=== PATIENT | female | born 1975 | race Caucasian/White ===

== ENCOUNTER 2021-04-20 15:07 | Emergency (ER) | payer SELFPAY ==
--- NOTE | ~2021-04-20 | XR_ITS ---
EXAMINATION: XR chest 1V portable INDICATION: Dizziness and slurred speech TECHNIQUE: Portable AP chest at 1644 hours COMPARISON: None available FINDINGS: The lungs are free of acute opacities. There is no pleural effusion or pneumothorax. The ca rdiomediastinal silhouette is normal. IMPRESSION: 1. No acute cardiopulmonary abnormality. Reviewed, dictated and finalized at location B.
--- NOTE | ~2021-04-20 | CT_ITS ---
EXAMINATION: CT brain wo con INDICATION: Slurred speech COMPARISON: None TECHNIQUE: Standard unenhanced head CT. The dose-length product (DLP) was 529.67 mGy-cm. The mA was a djusted according to patient size. Iterative reconstruction technique was employed. FINDINGS: There is no intracranial hemorrhage, acute infarction, or abnormal mass lesion. Focal areas of low attenuation in the gary may reflect prior infarct. The ventricles are normal. There is no abn ormal mass effect or midline shift. The reaves-white matter differentiation is normal. The basal cister ns are patent. The orbits are normal. The paranasal sinuses, mastoids and calvarium are normal. IMPRESSION: 1. Likely areas of prior infarction in the gary without acute intracranial abnormality. Reviewed, dictated and finalized at location B. IMPRESSION: 1. Likely areas of prior infarction in the gary without acute intracranial abno rmality.
[2021-04-20 16:14] VITALS: BP 198/119; PULSE 118; RESP 18; TEMP 36.2; O2SAT 94
--- NOTE | 2021-04-20 16:20 | ECG_ITS ---
Measurements Intervals [place] Rate: 120 P: 46 IL: 156 QRS: -12 QRSD: 86 T: 54 QT: 428 QTc: 605 Interpretive Statements SINUS TACHYCARDIA POOR R WAVE PROGRESSION, CONSIDER ANTERIOR INFARCT BASELINE WANDER- III, AVL, V4-V6 ABNORMAL ECG Electronically Signed On 04-20-2021 19:33:05 CDT by Harvey Sweet D.O.
[2021-04-20 16:35] LABS: Basophils Absolute Auto 0.1 K/mm3 (0.0-0.1); Basophils Percent Auto 0.7 % (0.2-1.2); Eosinophils Absolute Auto 0.1 K/mm3 (0-0.3); Eosinophils Percent Auto 1.7 % (0-4.4); Hematocrit 53.2 % (37.0-47.0); Hemoglobin 17.4 g/dL (12.0-15.0); Immature Granulocyte Absolute 0.03 K/mm3 (0.00-0.031); Immature Granulocyte Percent A 0.4 % (0-0.5); Lymphocytes Absolute Auto 1.37 K/mm3 (0.9-3.2); Lymphocytes Percent Auto 16.3 % (18.3-44.2); Mean Corpuscular HGB Conc 32.7 g/dl (32-36); Mean Corpuscular Hemoglobin 26.5 pg (26-34); Mean Corpuscular Volume 81.1 fl (80-100); Mean Platelet Volume 9.2 fl (7.4-10.4); Monocytes Absolute Auto 0.7 K/mm3 (0.1-0.6); Monocytes Percent Auto 8.1 % (2.6-8.5); Neutrophils Absolute Auto 6.1 K/mm3 (1.3-6.7); Neutrophils Percent Auto 72.8 % (45.5-73.1); Platelet Count Result 369 k/mm3 (150-375); Red Blood Count 6.56 M/mm3 (4.2-5.4); Red Cell Distribution Width 13.6 % (11.5-14.5); White Blood Count 8.4 K/mm3 (4.5-10.0)
[2021-04-20 16:41] LABS: Anion Gap 7 mmol/L (8-16); Blood Urea Nitrogen 8 mg/dL (7-17); Calcium 9.4 mg/dL (8.4-10.2); Carbon Dioxide 23 mmol/L (22-30); Chloride 104 mmol/L (98-107); Estimated CRCL calculation 192 ml/min; Estimated Glomerular Filt Rate > 60; Glucose 349 mg/dL (65-110); Potassium 3.8 mmol/L (3.4-5.0); Sodium 134 mmol/L (137-145)
[2021-04-20 16:47] LABS: INR 0.9; Prothrombin Time 11.7 Seconds (11.1-14.7)
[2021-04-20 16:49] LABS: Partial Thromboplastin Time 24.6 SECONDS (22.3-36.8)
[2021-04-20 16:53] LABS: Troponin I < 0.012 ng/mL (0.000-0.034)
[2021-04-20 17:14] VITALS: BP 155/94; PULSE 107; TEMP 36.5; O2SAT 99
[2021-04-20 20:04] VITALS: BP 176/96; PULSE 103; RESP 24; O2SAT 97
--- NOTE | 2021-04-20 20:38 | PC.NURSE ---
This nurse went in to patient room perform initial assessment on patient. Patient was speaking with Dr. Alexis, the patient asked this nurse if she could speak to a physician who spoke mohawk. The patient then said that she would like to leave. This nurse attempted to get the patient to sign an AMA form and the patient refused.
--- NOTE | 2021-04-20 21:00 | ED.GENADULT ---
HPI - General Adult General Chief complaint: Neuro Symptoms/Deficit Stated complaint: headache slurred speech Time Seen by Provider: 04/20/21 20:31 Source: patient, EMS and RN notes reviewed Mode of arrival: EMS Limitations: no limitations History of Present Illness HPI narrative: Patient is a 45 years old white female presented to the ED by ambulance from home complaining of slurred speech, poor balance and headache started 2 days ago. Patient reports a history of CVA about 7 years ago without any residual deficit. Patient is telling me that she does not take medication at home but have history of diabetes and MS. patient also telling me that she has been going to work over the last 2 days without any restriction. When I asked her about how she have history of MS and diabetes without medication and who is her family physician. Patient got mad and told me that she needs a physician speaks Spanish. In the presence of the ED nurse.. Then pulled her blood pressure cuff and got out of the bed telling the nurse that she would like to leave right away. I did have any chance to ask patient has any other questions. Or to do physical examination. Course Vital Signs Vital signs: Vital Signs Temperature 36.2 C L 04/20/21 16:14 Pulse Rate 118 H 04/20/21 16:14 Respiratory Rate 18 04/20/21 16:14 Blood Pressure 198/119 H 04/20/21 16:14 Pulse Oximetry 94 04/20/21 16:14 Temperature 36.5 C 04/20/21 17:14 Pulse Rate 103 H 04/20/21 20:04 Respiratory Rate 24 H 04/20/21 20:04 Blood Pressure 176/96 H 04/20/21 20:04 Pulse Oximetry 97 04/20/21 20:04 Medical Decision Making Vital Signs Vital Signs: Vital Signs Temperature 36.2 C L 04/20/21 16:14 Pulse Rate 118 H 04/20/21 16:14 Respiratory Rate 18 04/20/21 16:14 Blood Pressure 198/119 H 04/20/21 16:14 Pulse Oximetry 94 04/20/21 16:14 Temperature 36.5 C 04/20/21 17:14 Pulse Rate 103 H 04/20/21 20:04 Respiratory Rate 24 H 04/20/21 20:04 Blood Pressure 176/96 H 04/20/21 20:04 Pulse Oximetry 97 04/20/21 20:04 Lab Data Result diagrams: 04/20/21 16:25 04/20/21 16:25 Labs: Lab Results 04/20/21 04/20/21 04/20/21 Range/Units 16:25 16:25 16:25 WBC 8.4 (4.5-10.0) K/mm3 RBC 6.56 H (4.2-5.4) M/mm3 Hgb 17.4 H (12.0-15.0) g/dL Hct 53.2 H (37.0-47.0) % MCV 81.1 (80-100) fl MCH 26.5 (26-34) pg MCHC 32.7 (32-36) g/dl RDW 13.6 (11.5-14.5) % Plt Count 369 (150-375) k/mm3 MPV 9.2 (7.4-10.4) fl Immature Gran % (Auto) 0.4 (0-0.5) % Neut % (Auto) 72.8 (45.5-73.1) % Lymph % (Auto) 16.3 L (18.3-44.2) % [place] % (Auto) 8.1 (2.6-8.5) % Eos % (Auto) 1.7 (0-4.4) % Baso % (Auto) 0.7 (0.2-1.2) % Lymph # (Auto) 1.37 (0.9-3.2) K/mm3 [place] # (Auto) 0.7 H (0.1-0.6) K/mm3 Eos # (Auto) 0.1 (0-0.3) K/mm3 Baso # (Auto) 0.1 (0.0-0.1) K/mm3 Abs Immat Gran (auto) 0.03 (0.00-0.031) K/mm3 Absolute Neuts (auto) 6.1 (1.3-6.7) K/mm3 Absolute Nucleated RBC 0.0 (0.0-0.012) K/mm3 Nucleated RBC % 0.0 (0.0-0.2) % PT 11.7 (11.1-14.7) Seconds INR 0.9 APTT 24.6 (22.3-36.8) SECONDS Sodium 134 L (137-145) mmol/L Potassium 3.8 (3.4-5.0) mmol/L Chloride 104 (98-107) mmol/L Carbon Dioxide 23 (22-30) mmol/L Anion Gap 7 L (8-16) mmol/L BUN 8 (7-17) mg/dL Creatinine 0.40 L (0.7-1.0) mg/dL Estim Creat Clear Calc 192 ml/min Estimated GFR > 60 (59 - ) Glucose 349 H (65-110) mg/dL Calcium 9.4 (8.4-10.2) mg/dL Troponin I < 0.012 (0.000-0.034) ng/mL Discharge Plan Discharge Clinical Impression: Left against medical advice Patient Disposition: Left Against Medical Advice Condition: Guarded Prognosis Instructions: Against Medical Advice (ED) Follow-up/Referrals: UNKNOWN,DOCTOR [Primary Care Provider] -
--- NOTE | 2021-04-27 13:39 | PC.NURSE ---
Patient left AMA before being able to perform bedside test.
== END 2021-04-20 20:40 | disposition left against medical advice (07) ==
PROVIDERS: Emergency Medicine; Emergency Provider Emergency Medicine
DX: R47.81 Slurred speech (principal); E11.9 Type 2 diabetes mellitus without complications; G35 Multiple sclerosis; Z86.73 Personal history of transient ischemic attack (TIA), and cerebral infarction without residual deficits
CPT/HCPCS: 36415; 70450; 71045; 80048; 84484; 85025; 85610; 85730; 93005; 99284